=== PATIENT | female | born 1960 | race Caucasian/White ===

== ENCOUNTER 2020-02-13 11:46 | Emergency (ER) | payer OTHER, SELFPAY ==
[2020-02-13 11:48] VITALS: BP 187/76; PULSE 62; RESP 18; TEMP 36.4; O2SAT 98; BMI 23.1
--- NOTE | 2020-02-13 13:20 | XR_ITS ---
EXAMINATION: LEFT HIP AND SACRUM/COCCYX CLINICAL INFORMATION: Slipped and COMPARISON: Fell. Pain left hip and sacral region TECHNIQUE: Left hip 3 views. Sacrum and coccyx 3 views. FINDINGS: AP PELVIS AND LEFT HIP: There is a total left hip prosthesis with prosthetic components in satisfactory alignment. The SI joints are symmetrical and normal. L4 and L5 despite is hardware is visualized. The right hip joint space is normal. SACRUM AND COCCYX: No visible bony abnormality seen involving the sacrum or coccyx. The presacral and postsurgical soft tissues are normal. XR/XR hip LT min 2V IMPRESSION: Total left hip prosthesis in satisfactory alignment. Unremarkable right hip and SI joints. Unremarkable sacrum and/or coccyx.
--- NOTE | 2020-02-13 13:20 | XR_ITS ---
EXAMINATION: LEFT HIP AND SACRUM/COCCYX CLINICAL INFORMATION: Slipped and COMPARISON: Fell. Pain left hip and sacral region TECHNIQUE: Left hip 3 views. Sacrum and coccyx 3 views. FINDINGS: AP PELVIS AND LEFT HIP: There is a total left hip prosthesis with prosthetic components in satisfactory alignment. The SI joints are symmetrical and normal. L4 and L5 despite is hardware is visualized. The right hip joint space is normal. SACRUM AND COCCYX: No visible bony abnormality seen involving the sacrum or coccyx. The presacral and postsurgical soft tissues are normal. XR/XR sacrum coccyx min 2V IMPRESSION: Total left hip prosthesis in satisfactory alignment. Unremarkable right hip and SI joints. Unremarkable sacrum and/or coccyx.
--- NOTE | 2020-02-13 14:02 | ED.FALL ---
HPI - Fall General Chief Complaint: Fall Stated Complaint: fell hurt lesley jaimes Time Seen by Provider: 02/13/20 13:20 Source: patient Mode of arrival: ambulatory Limitations: no limitations History of Present Illness HPI Narrative: 59 y/o presenting with buttock and lower back pain s/p slip and fall down 4 stairs at home 2 days ago. She states she had a left hip replacement in September and is worried about the hardware. She states the pain is mostly on her tailbone and her right flank/low back. She is able to walk with a cane and some discomfort in her behind. She has no numbness, tingling or incontintinence issues. She states she also has upper back/shoulder soreness from the fall. She has been taking Motrin with some improvement. MD complaint: fall Onset (ago): day(s) (2) Fall from: standing Fall witnessed: yes, by family Place fall occurred: home Loss of consciousness: none Prolonged down time: no Symptoms prior to fall: none Context: tripped/slipped Location of injury: buttocks Severity: severe Severity scale (1-10): 8 Quality: aching Related Data Previous Rx's Medication Instructions Recorded acetaminophen [Tylenol Arthritis 650 mg PO Q8H PRN #30 tab 02/13/20 Pain] cyclobenzaprine 5 mg PO TID PRN #14 tab 02/13/20 ibuprofen 600 mg PO Q8H PRN #20 tab 02/13/20 lidocaine [Lidoderm] 1 patch TOPICAL DAILY #15 ea 02/13/20 Allergies Allergy/AdvReac Type Severity Reaction Status Date / Time codeine [CODEINE] AdvReac Unknown NAUSEA & Unverified 12/27/19 15:14 VOMITING Review of Systems Review of Systems: Constitutional: No Fever, No Chills ENT/Mouth: No sore throat, No Rhinorrhea, No Swallowing Difficulty Eyes: No Eye Pain, No Swelling, No Redness Cardiovascular: No Chest Pain, No SOB, No Orthopnea, No Edema Respiratory: No Cough, No Sputum, No Wheezing, No dyspnea Gastrointestinal: No Nausea, No Vomiting, No Diarrhea, No abdominal Pain, No Hematochezia, No Melena Genitourinary: No Dysuria, No Urinary Frequency, No Hematuria Musculoskeletal: No joint pain, No Myalgias Skin: No Skin Lesions, No rash Neuro: No Weakness, No Numbness, No Dizziness, No Headache Psych: No Anxiety/Panic, No Depression Heme/Lymph: No Bruising, No Lymphadenopathy Endocrine: No Polyuria, No Polydipsia [facility] Past Medical History Surgical History (Updated 02/13/20 @ 11:49 by Christiana Thrasher) History of left hip replacement Social History Social History Advance Directives: Yes Advance Directives Information Provided: Yes Advance Directives on File: No Physical Exam Vital Signs: Vital Signs: Vital Signs Temp Pulse Resp BP Pulse Ox 02/13/20 11:48 97.6 F 62 18 187/76 H 98 Body Mass Index 23.1 Appearance: Alert. Oriented X3. No acute distress. HEENT: normal inspection CVS: Normal heart rate and rhythm. Pulses normal. Respiratory: No respiratory distress. Skin: Skin warm and dry. Normal skin color. Normal skin turgor. No rashes. Back: upper right lumbar area with soft tissue tenderness. coccyx tenderness, no crepitus or deformity palpated. Extremities: pelvis is stable. mild tenderness to proximal femur on the left, no deformity. Neuro: Oriented X 3. No motor deficit. No sensory deficit. Course Course Course Narrative: reports right back pain and tailbone pain after slip and fall down 4 stairs 2 days ago. XR pending to r/o fracture and assess left hip integrity. Reevaluation(s) Reevaluation #1: XR shows Total left hip prosthesis in satisfactory alignment. Unremarkable right hip and SI joints. Unremarkable sacrum and/or coccyx. Will treat for contusion and strain. Patient will f/u with PCP this week. Critical Care Time Critical Care Time Critical Care Time: No Discharge Plan Discharge Clinical Impression: Contusion Qualifiers: Encounter type: initial encounter Contusion area: lower back Qualified Code(s): S30.0XXA - Contusion of lower back and pelvis, initial encounter Contusion of buttock Qualifiers: Encounter type: initial encounter Qualified Code(s): S30.0XXA - Contusion of lower back and pelvis, initial encounter Patient Disposition: Home, Self-Care Instructions: Contusion in Adults (ED), Acute Low Back Pain (ED), Lower Back Exercises (ED) Additional Instructions: Use ice to the wear for 20 minutes at a time several times per day for the next 24-48 hours then change to heat. Limit bending, lifting >10 lbs and twisting motions. Rest. Follow up with your Primary Care doctor in 1 week. If you pain worsens or if you develop new numbness, tingling, or loss of function call 911 or come back to the ER for further evaluation. Prescriptions: New ibuprofen 600 mg tablet 600 mg PO Q8H PRN (Reason: pain) Qty: 20 RF: 0 cyclobenzaprine 5 mg tablet 5 mg PO TID PRN (Reason: muscle spasm) Qty: 14 RF: 0 acetaminophen [Tylenol Arthritis Pain] 650 mg tablet extended release 650 mg PO Q8H PRN (Reason: pain) Qty: 30 RF: 0 lidocaine [Lidoderm] 5 % adhesive patch,medicated 1 patch topical DAILY Qty: 15 RF: 0
[2020-02-13 14:57] VITALS: BP 142/73; PULSE 84; RESP 14; TEMP 36.8; O2SAT 98
== END 2020-02-13 15:01 | disposition home or self-care (01) ==
PROVIDERS: Emergency Provider Emergency Medicine; PCP Internal Medicine
DX: S30.0XXA Contusion of lower back and pelvis, initial encounter (principal); W10.9XXA Fall (on) (from) unspecified stairs and steps, initial encounter; M25.552 Pain in left hip; M25.551 Pain in right hip; Y93.9 Activity, unspecified; Y92.009 Unspecified place in unspecified non-institutional (private) residence as the place of occurrence of the external cause; Y99.9 Unspecified external cause status; Z79.899 Other long term (current) drug therapy
CPT/HCPCS: 72220; 73502; 99283

== ENCOUNTER 2020-11-09 12:47 | Emergency (ER) | payer BC, SELFPAY ==
--- NOTE | ~2020-11-09 | XR_ITS ---
EXAMINATION: XR CHEST CLINICAL INFORMATION: Cough and fever COMPARISON: 10/06/2019 TECHNIQUE: Portable AP upright view of the chest was obtained. FINDINGS: The heart and mediastinum are normal in appearance. The lungs and pleural spaces are clear. No acute osseous abnormalities. XR/XR chest 1V IMPRESSION: Unremarkable examination.
[2020-11-09 13:14] VITALS: BP 140/53; PULSE 64; RESP 16; TEMP 37.7; O2SAT 99; BMI 22.1
[2020-11-09 14:16] VITALS: BP 138/52; PULSE 73; TEMP 37.1; O2SAT 100
--- NOTE | 2020-11-09 14:24 | ED.GENADULT ---
HPI - General Adult General Chief complaint: General Medical Stated complaint: multiple complaints Time Seen by Provider: 11/09/20 14:08 Source: patient Mode of arrival: ambulatory Limitations: no limitations History of Present Illness HPI narrative: 60-year-old female presents emergency department with multiple complaints she states that she has been having some nausea for the past 2 days decreased appetite and urinary frequency she has been drinking lots of water. Patient is concerned that she has had fevers and chills this morning she is immunized against COVID. Patient denies any falls head injuries she had 1 episode of emesis yesterday. Related Data Previous Rx's Medication Instructions Recorded acetaminophen 650 mg 650 mg PO Q8H PRN #30 tab 02/13/20 tablet,extended release (Tylenol Arthritis Pain) cyclobenzaprine 5 mg tablet 5 mg PO TID PRN #14 tab 02/13/20 ibuprofen 600 mg tablet 600 mg PO Q8H PRN #20 tab 02/13/20 lidocaine 5 % topical patch 1 patch TOPICAL DAILY #15 ea 02/13/20 (Lidoderm) permethrin 5 % topical cream 1 appl TOPICAL Q14D #60 g 03/11/20 Allergies Allergy/AdvReac Type Severity Reaction Status Date / Time codeine [CODEINE] AdvReac Unknown NAUSEA & Verified 11/09/20 13:22 VOMITING PMFSH Past Medical History Medical History (Updated 11/09/20 @ 15:55 by Alexey Cruz DO) Avascular necrosis of bone Surgical History (Updated 03/24/20 @ 08:15 by Sandy Morris CMA) History of left hip replacement (~10/01/19) Social History Social History Patient Tobacco Use Status: Current everyday Tobacco user Smoked in Last 30 Days: Yes Use of substances other than those prescribed or required for medical reasons: No Advance Directives: No Advance Directives Information Provided: Yes Physical Exam Vital Signs: Vital Signs: Last Vital Signs Temp 98.7 F 11/09/20 14:16 Pulse 73 11/09/20 14:16 Resp 16 11/09/20 13:14 BP 138/52 L 11/09/20 14:16 Pulse Ox 100 11/09/20 14:16 Body Mass Index 22.1 Medical Decision Making MDM Narrative Medical decision making narrative: 1430 and patient with multiple complaints including nausea vomiting urinary symptom is fever and body aches. I will send a flu RSV and COVID I will get an x-ray and labs to give the patient fluids Tylenol and Toradol. Patient looks well still pending is urinalysis x-ray and labs otherwise unremarkable I will sign out pending UA. Lab Data Result diagrams: 11/09/20 14:36 11/09/20 14:36 Labs: Lab Results 11/09/20 11/09/20 Range/Units 14:36 14:36 WBC 12.4 H (4.8-10.8) X10*3/uL RBC 4.42 (4.20-5.50) X10*6/uL Hgb 13.3 (12.0-16.0) g/dl Hct 39.6 (37-47) % MCV 89.6 (80-98) fL MCH 30.1 (27.0-33.0) pg MCHC 33.6 (31.0-35.0) g/dl RDW 12.6 (11.0-16.0) % Plt Count 222 (160-400) X10*3/uL MPV 9.0 L (9.4-12.3) fL Immature Gran % (Auto) 0.6 H (0.0-0.4) % Neut % (Auto) 73.8 H (45-73) % Lymph % (Auto) 16.6 L (20-40) % [place] % (Auto) 8.6 (2-11) % Eos % (Auto) 0.1 (0-4) % Baso % (Auto) 0.3 (0-2) % Lymph # (Auto) 2.1 (1.2-4.9) X10*3/uL [place] # (Auto) 1.1 (0.1-1.2) X10*3/uL Eos # (Auto) 0.0 (0.0-0.4) X10*3/uL Baso # (Auto) 0.0 (0.0-0.2) X10*3/uL Abs Immat Gran (auto) 0.07 H (0.00-0.03) X10*3/uL Absolute Neuts (auto) 9.1 H (2.0-8.3) X10*3/uL Absolute Nucleated RBC 0.000 (0.0-0.012) X10*3/uL Nucleated RBC % (auto) 0.0 (0.0-0.2) /100WBC Sodium 135 (135-145) mmol/L Potassium 4.1 (3.3-5.1) mmol/L Chloride 98 (96-108) mmol/L Carbon Dioxide 27 (22-29) mmol/L Anion Gap 14 (12-20) BUN 7 L (9-16) mg/dL Creatinine 0.66 (0.5-1.4) mg/dL Estim Creat Clear Calc 80.2 Estimated GFR > 60 Random Glucose 104 (60-115) mg/dL Calcium 9.5 (8.4-10.2) mg/dL Total Bilirubin 1.0 (0.0-1.0) mg/dL Direct Bilirubin 0.4 (0.0-0.5) mg/dL AST 19 (5-31) U/L ALT 24 (0-31) U/L Alkaline Phosphatase 111 (39-117) U/L Total Protein 6.8 (6.5-8.0) g/dL Albumin 4.3 (3.5-5.0) g/dL Lipase 24 (8-78) U/L Discharge Plan Discharge Clinical Impression: Fever, Myalgia, Increased urinary frequency Instructions: Acetaminophen (By mouth), Fever in Adults (ED), Urinary Urgency and Frequency (DC) Additional Instructions: Please call follow-up with her doctor if you have any other concerns please do not hesitate to come back to emergency department. Prescriptions: No Action ibuprofen 600 mg tablet 600 mg PO Q8H PRN (Reason: pain) Qty: 20 RF: 0 cyclobenzaprine 5 mg tablet 5 mg PO TID PRN (Reason: muscle spasm) Qty: 14 RF: 0 acetaminophen [Tylenol Arthritis Pain] 650 mg tablet extended release 650 mg PO Q8H PRN (Reason: pain) Qty: 30 RF: 0 lidocaine [Lidoderm] 5 % adhesive patch,medicated 1 patch topical DAILY Qty: 15 RF: 0 permethrin 5 % cream 1 appl topical Q14D Qty: 60 RF: 0
[2020-11-09] MEDS: 0.9 % Sodium Chloride 500 ML 999 ML IV (14:40)
[2020-11-09 14:41] LABS: MANUAL DIFF FLAG NO
[2020-11-09 14:42] LABS: Basophils Percent Auto 0.3 % (0-2); Eosinophils Percent Auto 0.1 % (0-4); Hematocrit 39.6 % (37-47); Hemoglobin 13.3 g/dl (12.0-16.0); Imm Gran Abs Auto 0.07 X10*3/uL (0.00-0.03); Imm Gran Pct Auto 0.6 % (0.0-0.4); Lymphocytes Absolute Auto 2.1 X10*3/uL (1.2-4.9); Lymphocytes Percent Auto 16.6 % (20-40); Mean Corpuscular HGB Conc 33.6 g/dl (31.0-35.0); Mean Corpuscular Hemoglobin 30.1 pg (27.0-33.0); Mean Corpuscular Volume 89.6 fL (80-98); Monocytes Absolute Auto 1.1 X10*3/uL (0.1-1.2); Monocytes Percent Auto 8.6 % (2-11); Neutrophils Absolute Auto 9.1 X10*3/uL (2.0-8.3); Neutrophils Percent Auto 73.8 % (45-73); Platelet Count 222 X10*3/uL (160-400); Red Blood Count 4.42 X10*6/uL (4.20-5.50); Red Cell Distribution Width 12.6 % (11.0-16.0); White Blood Count 12.4 X10*3/uL (4.8-10.8)
[2020-11-09] MEDS: Ketorolac Tromethamine 15 MG/ML VIAL IV (14:58)
[2020-11-09] MEDS: Acetaminophen 325 MG TABLET 650 MG PO (14:58)
[2020-11-09 15:05] LABS: Alanine Aminotransferase 24 U/L (0-31); Albumin Level 4.3 g/dL (3.5-5.0); Alkaline Phosphatase 111 U/L (39-117); Anion Gap 14 (12-20); Aspartate Amino Transferase 19 U/L (5-31); Bilirubin Direct 0.4 mg/dL (0.0-0.5); Blood Urea Nitrogen 7 mg/dL (9-16); Calcium 9.5 mg/dL (8.4-10.2); Carbon Dioxide 27 mmol/L (22-29); Chloride 98 mmol/L (96-108); Creatinine Clr Calc Pharmacy 80.2; Estimated Glomerular Filt Rate > 60; Glucose Random 104 mg/dL (60-115); Lipase 24 U/L (8-78); Potassium 4.1 mmol/L (3.3-5.1); Sodium 135 mmol/L (135-145); Total Protein 6.8 g/dL (6.5-8.0)
[2020-11-09 15:41] LABS: Influenza A PCR NEGATIVE (Negative); Influenza B PCR NEGATIVE (Negative); Resp Syncy Virus RNA Qual PCR NEGATIVE (Negative); SARS COV2 PCR INHOUSE NEGATIVE (Negative)
[2020-11-09 15:55] LABS: Glucose Urine UA NEG (NEG); Leukocyte Esterase Urine 2+ (NEG); Nitrite Urine POS (NEG); UACC Culture Trigger YES; Urine Blood 1+ (NEG); Urine Ketones NEG (NEG); Urine Protein TRACE MG/DL (NEG-TRACE)
[2020-11-09 16:05] LABS: Appearance Urine HAZY; Color Urine YELLOW
[2020-11-09 16:20] VITALS: BP 121/39; PULSE 67; RESP 16; TEMP 36.8; O2SAT 95
[2020-11-09 17:08] LABS: Bacteria Urine 3+ /LPF; RBC Urine 0-2 /HPF (0); Squamous Epithelial Cell Urine TRACE /LPF; Uric Acid Crystals Urine TRACE /LPF; WBC Urine 50-75 /HPF (0-4)
--- NOTE | 2020-11-09 17:40 | ED.GENADULT ---
HPI - General Adult General Chief complaint: General Medical Stated complaint: multiple complaints Time Seen by Provider: 11/09/20 14:08 Source: patient Mode of arrival: ambulatory Limitations: no limitations Related Data Previous Rx's Medication Instructions Recorded acetaminophen 650 mg 650 mg PO Q8H PRN #30 tab 02/13/20 tablet,extended release (Tylenol Arthritis Pain) cyclobenzaprine 5 mg tablet 5 mg PO TID PRN #14 tab 02/13/20 ibuprofen 600 mg tablet 600 mg PO Q8H PRN #20 tab 02/13/20 lidocaine 5 % topical patch 1 patch TOPICAL DAILY #15 ea 02/13/20 (Lidoderm) permethrin 5 % topical cream 1 appl TOPICAL Q14D #60 g 03/11/20 cefuroxime axetil 500 mg tablet 500 mg PO Q12H 7 Days #14 tab 11/09/20 phenazopyridine 200 mg tablet 200 mg PO TID PRN 3 Days #9 tab 11/09/20 (Pyridium) Allergies Allergy/AdvReac Type Severity Reaction Status Date / Time codeine [CODEINE] AdvReac Unknown NAUSEA & Verified 11/09/20 13:22 VOMITING PMF Past Medical History Medical History (Updated 11/09/20 @ 17:58 by Wayne Winn MD) Avascular necrosis of bone Surgical History (Updated 03/24/20 @ 08:15 by Sandy Morris CMA) History of left hip replacement (~10/01/19) Social History Social History Patient Tobacco Use Status: Current everyday Tobacco user Smoked in Last 30 Days: Yes Use of substances other than those prescribed or required for medical reasons: No Advance Directives: No Advance Directives Information Provided: Yes Physical Exam Vital Signs: Vital Signs: Last Vital Signs Temp 98.3 F 11/09/20 16:20 Pulse 67 11/09/20 16:20 Resp 16 11/09/20 16:20 BP 121/39 L 11/09/20 16:20 Pulse Ox 95 11/09/20 16:20 Body Mass Index 22.1 Medical Decision Making Lab Data Result diagrams: 11/09/20 14:36 11/09/20 14:36 Labs: Lab Results 11/09/20 11/09/20 11/09/20 Range/Units 14:32 14:36 14:36 WBC 12.4 H (4.8-10.8) X10*3/uL RBC 4.42 (4.20-5.50) X10*6/uL Hgb 13.3 (12.0-16.0) g/dl Hct 39.6 (37-47) % MCV 89.6 (80-98) fL MCH 30.1 (27.0-33.0) pg MCHC 33.6 (31.0-35.0) g/dl RDW 12.6 (11.0-16.0) % Plt Count 222 (160-400) X10*3/uL MPV 9.0 L (9.4-12.3) fL Immature Gran % (Auto) 0.6 H (0.0-0.4) % Neut % (Auto) 73.8 H (45-73) % Lymph % (Auto) 16.6 L (20-40) % [place] % (Auto) 8.6 (2-11) % Eos % (Auto) 0.1 (0-4) % Baso % (Auto) 0.3 (0-2) % Lymph # (Auto) 2.1 (1.2-4.9) X10*3/uL [place] # (Auto) 1.1 (0.1-1.2) X10*3/uL Eos # (Auto) 0.0 (0.0-0.4) X10*3/uL Baso # (Auto) 0.0 (0.0-0.2) X10*3/uL Abs Immat Gran (auto) 0.07 H (0.00-0.03) X10*3/uL Absolute Neuts (auto) 9.1 H (2.0-8.3) X10*3/uL Absolute Nucleated RBC 0.000 (0.0-0.012) X10*3/uL Nucleated RBC % (auto) 0.0 (0.0-0.2) /100WBC Sodium 135 (135-145) mmol/L Potassium 4.1 (3.3-5.1) mmol/L Chloride 98 (96-108) mmol/L Carbon Dioxide 27 (22-29) mmol/L Anion Gap 14 (12-20) BUN 7 L (9-16) mg/dL Creatinine 0.66 (0.5-1.4) mg/dL Estim Creat Clear Calc 80.2 Estimated GFR > 60 Random Glucose 104 (60-115) mg/dL Calcium 9.5 (8.4-10.2) mg/dL Total Bilirubin 1.0 (0.0-1.0) mg/dL Direct Bilirubin 0.4 (0.0-0.5) mg/dL AST 19 (5-31) U/L ALT 24 (0-31) U/L Alkaline Phosphatase 111 (39-117) U/L Total Protein 6.8 (6.5-8.0) g/dL Albumin 4.3 (3.5-5.0) g/dL Lipase 24 (8-78) U/L Urine Color Urine Appearance Urine pH (5.0-8.0) Ur Specific [place] (1.005-1.025) Urine Protein (NEG-TRACE) MG/DL Urine Glucose (UA) (NEG) MG/DL Urine Ketones (NEG) MG/DL Urine Blood (NEG) Urine Nitrite (NEG) Ur Leukocyte Esterase (NEG) Urine RBC (0) /HPF Urine WBC (0-4) /HPF Ur Squamous Epith Cells /LPF Uric Acid Crystals /LPF Urine Bacteria /LPF Coronavirus (PCR) NEGATIVE (Negative) Influenza Type A (PCR) NEGATIVE (Negative) Influenza Type B (PCR) NEGATIVE (Negative) RSV RNA Qual (PCR) NEGATIVE (Negative) 11/09/20 Range/Units 15:22 WBC (4.8-10.8) X10*3/uL RBC (4.20-5.50) X10*6/uL Hgb (12.0-16.0) g/dl Hct (37-47) % MCV (80-98) fL MCH (27.0-33.0) pg MCHC (31.0-35.0) g/dl RDW (11.0-16.0) % Plt Count (160-400) X10*3/uL MPV (9.4-12.3) fL Immature Gran % (Auto) (0.0-0.4) % Neut % (Auto) (45-73) % Lymph % (Auto) (20-40) % [place] % (Auto) (2-11) % Eos % (Auto) (0-4) % Baso % (Auto) (0-2) % Lymph # (Auto) (1.2-4.9) X10*3/uL [place] # (Auto) (0.1-1.2) X10*3/uL Eos # (Auto) (0.0-0.4) X10*3/uL Baso # (Auto) (0.0-0.2) X10*3/uL Abs Immat Gran (auto) (0.00-0.03) X10*3/uL Absolute Neuts (auto) (2.0-8.3) X10*3/uL Absolute Nucleated RBC (0.0-0.012) X10*3/uL Nucleated RBC % (auto) (0.0-0.2) /100WBC Sodium (135-145) mmol/L Potassium (3.3-5.1) mmol/L Chloride (96-108) mmol/L Carbon Dioxide (22-29) mmol/L Anion Gap (12-20) BUN (9-16) mg/dL Creatinine (0.5-1.4) mg/dL Estim Creat Clear Calc Estimated GFR Random Glucose (60-115) mg/dL Calcium (8.4-10.2) mg/dL Total Bilirubin (0.0-1.0) mg/dL Direct Bilirubin (0.0-0.5) mg/dL AST (5-31) U/L ALT (0-31) U/L Alkaline Phosphatase (39-117) U/L Total Protein (6.5-8.0) g/dL Albumin (3.5-5.0) g/dL Lipase (8-78) U/L Urine Color YELLOW Urine Appearance HAZY Urine pH 6.0 (5.0-8.0) Ur Specific [place] 1.010 (1.005-1.025) Urine Protein TRACE (NEG-TRACE) MG/DL Urine Glucose (UA) NEG (NEG) MG/DL Urine Ketones NEG (NEG) MG/DL Urine Blood 1+ H (NEG) Urine Nitrite POS H (NEG) Ur Leukocyte Esterase 2+ H (NEG) Urine RBC 0-2 (0) /HPF Urine WBC 50-75 H (0-4) /HPF Ur Squamous Epith Cells TRACE /LPF Uric Acid Crystals TRACE /LPF Urine Bacteria 3+ /LPF Coronavirus (PCR) (Negative) Influenza Type A (PCR) (Negative) Influenza Type B (PCR) (Negative) RSV RNA Qual (PCR) (Negative) Discharge Plan Discharge Clinical Impression: Myalgia Fever Qualifiers: Encounter type: initial encounter Acute cystitis Qualifiers: Hematuria presence: without hematuria Qualified Code(s): N30.00 - Acute cystitis without hematuria Patient Disposition: Home, Self-Care Instructions: Urinary Tract Infection in Women (ED) Additional Instructions: Your laboratory blood work was unremarkable. Your urine test was consistent with a urine infection, you have white blood cells in your urine and bacteria. Your exam is consistent with a bladder infection. Take Ceftin ( cefuroxime) 500 mg pills, 1 pill the every 12 hours for 7 days. Take Pyridium 200 mg pills, 1 pill every 6 hours (3 times a day) as needed for urgency, frequency, burning or painful urination. Take ibuprofen 200 mg pills, 3 pills every 6 hours as needed for pain or fever Take Tylenol (acetaminophen) 500 mg pills, 2 pills every 4 to 6 hours as needed for pain or fever Follow-up with your doctor in 2 days. Please return to the emergency department if your symptoms get worse or if you develop any symptoms that are concerning to you. Prescriptions: New cefuroxime axetil 500 mg tablet 500 mg PO Q12H 7 Days Qty: 14 RF: 0 phenazopyridine [Pyridium] 200 mg tablet 200 mg PO TID PRN (Reason: Burning with urination) 3 Days Qty: 9 RF: 0 No Action ibuprofen 600 mg tablet 600 mg PO Q8H PRN (Reason: pain) Qty: 20 RF: 0 cyclobenzaprine 5 mg tablet 5 mg PO TID PRN (Reason: muscle spasm) Qty: 14 RF: 0 acetaminophen [Tylenol Arthritis Pain] 650 mg tablet extended release 650 mg PO Q8H PRN (Reason: pain) Qty: 30 RF: 0 lidocaine [Lidoderm] 5 % adhesive patch,medicated 1 patch topical DAILY Qty: 15 RF: 0 permethrin 5 % cream 1 appl topical Q14D Qty: 60 RF: 0
[2020-11-09] MEDS: Phenazopyridine HCL 200 MG TABLET PO (18:09)
== END 2020-11-09 18:13 | disposition home or self-care (01) ==
PROVIDERS: Student in an Organized Health Care Education/Training Program; Emergency Provider Emergency Medicine Emergency Medical Services; PCP Internal Medicine
DX: M79.10 Myalgia, unspecified site (principal); N30.00 Acute cystitis without hematuria; Z20.822 Contact with and (suspected) exposure to COVID-19; Z79.899 Other long term (current) drug therapy; F17.200 Nicotine dependence, unspecified, uncomplicated; Z71.6 Tobacco abuse counseling
CPT/HCPCS: 0241U; 36415; 71045; 80048; 80076; 81001; 81003; 83690; 85025; 87086; 87088; 87186; 96365; 96375; 99284; J1885; J2405

== ENCOUNTER 2021-01-06 14:01 | Outpatient (REF) | payer BC, SELFPAY ==
[2021-01-06 14:56] LABS: Influenza A PCR NEGATIVE (Negative); Influenza B PCR NEGATIVE (Negative); Resp Syncy Virus RNA Qual PCR NEGATIVE (Negative); SARS COV2 PCR INHOUSE NEGATIVE (Negative)
== END 2021-01-06 14:02 | disposition home or self-care (01) ==
LOC: HO.LNP 14:01
PROVIDERS: Visit Provider Physician Assistant Medical
DX: Z20.822 Contact with and (suspected) exposure to COVID-19 (principal); J06.9 Acute upper respiratory infection, unspecified
CPT/HCPCS: 0241U

== ENCOUNTER 2021-03-20 07:43 | Outpatient (REF) | payer BC, SELFPAY ==
--- NOTE | ~2021-03-20 | XR_ITS ---
EXAMINATION: XR PELVIS. XR HIP, RIGHT CLINICAL INFORMATION: Right hip pain. COMPARISON: 02/13/2020 TECHNIQUE: AP radiograph of the pelvis. AP and frog-lateral views of the right hip. FINDINGS: There is patchy sclerosis of the right femoral head, most likely representing avascular necrosis. This is similar to the previous study. Minimal superomedial joint space narrowing with no definite articular surface collapse. No acute osseous abnormality. Stable appearance of the left total hip arthroplasty. 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 No acute abnormality is evident.
--- NOTE | ~2021-03-20 | XR_ITS ---
EXAMINATION: XR PELVIS. XR HIP, RIGHT CLINICAL INFORMATION: Right hip pain. COMPARISON: 02/13/2020 TECHNIQUE: AP radiograph of the pelvis. AP and frog-lateral views of the right hip. FINDINGS: There is patchy sclerosis of the right femoral head, most likely representing avascular necrosis. This is similar to the previous study. Minimal superomedial joint space narrowing with no definite articular surface collapse. No acute osseous abnormality. Stable appearance of the left total hip arthroplasty. 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 No acute abnormality is evident.
== END 2021-03-20 07:44 | disposition home or self-care (01) ==
LOC: HO.HOSX 07:43
PROVIDERS: Visit Provider Physician Assistant
DX: M70.61 Trochanteric bursitis, right hip (principal)
CPT/HCPCS: 72170; 73502

== ENCOUNTER 2021-06-09 09:13 | Emergency (ER) | payer BC, OTHER, SELFPAY ==
--- NOTE | ~2021-06-09 | XR_ITS ---
EXAMINATION: XR LUMBOSACRAL SPINE CLINICAL INFORMATION: Pain post fall COMPARISON: None TECHNIQUE: Three views of the lumbosacral spine. FINDINGS: Bone alignment is normal. No fracture or dislocation is seen. There is degenerative disc disease, spondylosis and facet arthritis of the lower lumbar spine. There is hardware fusion of the L4-L5 spinous processes. There is a left hip replacement. There are radiopaque devices in the pelvis probably related to previous fallopian tube procedure. XR/XR lumbar spine 2-3V IMPRESSION: Degenerative changes. Postoperative changes to the L4-L5 spinous processes.
--- NOTE | ~2021-06-09 | XR_ITS ---
EXAMINATION: XR HIP, LEFT CLINICAL INFORMATION: Pain post fall. COMPARISON: None. TECHNIQUE: 2 views of the left hip and 1 view of the pelvis. FINDINGS: There is a left hip replacement in satisfactory position. No fracture, dislocation or x-ray evidence of loosening is seen. There may be AVN of the right femoral head that appears unchanged. There are mild degenerative changes of the right hip joint. Bones of the pelvis are unremarkable. There is hardware in the lower lumbar spine. There are bilateral surgical devices in the pelvis probably related to previous fallopian tube procedure. These are unchanged. XR/XR hip LT w PEL1V IMPRESSION: Satisfactory appearance of left hip replacement. No fracture or dislocation.
[2021-06-09 09:21] VITALS: BP 100/80; PULSE 58; RESP 16; TEMP 36.7; O2SAT 97; BMI 23.1
[2021-06-09] MEDS: Ketorolac Tromethamine 30 MG/ML VIAL IM (09:28)
[2021-06-09] MEDS: oxyCODONE HCl Immed Release 5 MG TABLET PO (09:28)
--- NOTE | 2021-06-09 09:31 | ED_ITS ---
HPI - Fall General Chief Complaint: Fall Stated Complaint: SLIP/FALL LAST NOC W/BACK & HIP PAIN Time Seen by Provider: 06/09/21 09:20 Source: patient and EMS Mode of arrival: EMS Limitations: no limitations History of Present Illness HPI Narrative: 52-year-old female with a history of hypertension who presents to the ER via EMS from home with reports of left low back pain after she slipped and fell last night at 00:30. She reports that she got up to let out her dog and was walking [place] stairs [place] when she slipped and fell onto her left low back and buttocks. She reports it took her a while to get up. She did not hit her head or lose consciousness. She is not on anticoagulation. She reports she was unable to sleep after the fall. She was unable to get out of bed this morning due to the pain in her left lower back and buttock. She called 911. She denies any numbness, tingling, weakness, incontinence. MD complaint: fall Onset (ago): hour(s) (9) Fall from: standing Fall witnessed: no Place fall occurred: home Loss of consciousness: none Prolonged down time: no Symptoms prior to fall: none Context: tripped/slipped Location of injury: back and buttocks Severity: severe Severity scale (1-10): 9 Quality: sharp and aching Associated symptoms (after fall): denies Related Data Home Medications Medication Instructions Recorded Confirmed albuterol sulfate 90 mcg/actuation 2 puff PO Q4-6H PRN 06/09/21 aerosol inhaler amlodipine 10 mg tablet 1 tab PO DAILY 06/09/21 buspirone 15 mg tablet 1 tab PO BID 06/09/21 fluoxetine 20 mg capsule 3 cap PO QAM 06/09/21 hydroxyzine HCl 25 mg tablet 1 - 2 tab PO BID PRN 06/09/21 losartan 100 mg tablet 1 tab PO DAILY 06/09/21 metoprolol succinate 50 mg 1 tab PO DAILY 06/09/21 tablet,extended release 24 hr oxycodone-acetaminophen 5 mg-325 1 - 2 tab PO Q6H PRN 06/09/21 mg tablet pantoprazole 40 mg tablet,delayed 1 tab PO DAILY 06/09/21 release Previous Rx's Medication Instructions Recorded acetaminophen 650 mg 650 mg PO Q8H PRN #30 tab 02/13/20 tablet,extended release (Tylenol Arthritis Pain) cyclobenzaprine 5 mg tablet 5 mg PO TID PRN #14 tab 02/13/20 ibuprofen 600 mg tablet 600 mg PO Q8H PRN #20 tab 02/13/20 lidocaine 5 % topical patch 1 patch TOPICAL DAILY #15 ea 02/13/20 (Lidoderm) permethrin 5 % topical cream 1 appl TOPICAL Q14D #60 g 03/11/20 cefuroxime axetil 500 mg tablet 500 mg PO Q12H 7 Days #14 tab 11/09/20 phenazopyridine 200 mg tablet 200 mg PO TID PRN 3 Days #9 tab 11/09/20 (Pyridium) naproxen 500 mg tablet 500 mg PO BID PRN #20 tab 06/09/21 tramadol 50 mg tablet 50 mg PO Q8H PRN #7 tab 06/09/21 Allergies Allergy/AdvReac Type Severity Reaction Status Date / Time codeine [CODEINE] AdvReac Unknown NAUSEA & Verified 03/20/21 11:43 VOMITING Review of Systems Review of Systems: Constitutional: No Fever, No Chills Cardiovascular: No Chest Pain, No SOB Gastrointestinal: No Nausea, No Vomiting, No abdominal Pain Genitourinary: No Dysuria, No Urinary Frequency, No Hematuria Musculoskeletal: + joint pain, + Myalgias Skin: No Skin Lesions, No rash Neuro: No Weakness, No Numbness, No Dizziness, No Headache Psych: No Anxiety/Panic, No Depression Heme/Lymph: No Bruising, No Lymphadenopathy Endocrine: No Polyuria, No Polydipsia PMFSH Past Medical History Medical History Avascular necrosis of bone Surgical History History of left hip replacement (~10/01/19) Social History Social History (Updated 03/20/21 @ 11:44 by Al Medina) Patient Tobacco Use Status: Current everyday Tobacco user Advance Directives: No Advance Directives Information Provided: Yes Current occupational status: disabled Current occupation: rt handed Physical Exam Vital Signs: Vital Signs: Last Vital Signs Temp 97.9 F 06/09/21 10:24 Pulse 51 06/09/21 10:24 Resp 14 06/09/21 10:24 BP 110/46 L 06/09/21 10:24 Pulse Ox 94 06/09/21 10:24 BMI result Body Mass Index 23.1 Appearance: Alert. Oriented X3. No acute distress. Head: atraumatic, normocephalic, nontender throughout Eyes: Pupils equal, round and reactive to light. ENT: Pharynx normal. Neck: Normal inspection. Neck supple. CVS: Normal heart rate and rhythm. Pulses normal. Respiratory: No respiratory distress. Breath sounds normal. Abdomen: Soft and nontender. +BS x4 Skin: Skin warm and dry. Normal skin color. Normal skin turgor. No rashes. Back: left upper, middle and lower lumbar area with soft tissue tenderness. no midline tenderness. no ecchymosis Extremities: Pelvis is stable. No hip tenderness. No lower extremity edema. +straight leg raise on the right at 30 degrees. Neuro: Oriented X 3. No motor deficit. No sensory deficit. Gait not tested due to pain. Course Course Course Narrative: 60 y/o female presenting with left lower back pain s/p slip and fall while walking up stairs in the middle of the night last night. No neuro deficits, no incontinence. No ecchymosis on exam but soft tissue tenderness throughout left lumbar area. XRs pending. Toradol and oxycodone ordered. Will reassess. Reevaluation(s) Reevaluation #1: Pain improved. Lumbar spine XR without fracture. Still pending pelvis and hip XR. Reevaluation #2: XR pelvis and hip did not show any acute fractures. She is feeling better. Stable for d/c home with course of NSAID and muscle relaxer. 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 Discharge Plan Discharge Clinical Impression: Contusion of lower back Patient Disposition: Home, Self-Care Instructions: Contusion in Adults (ED) Additional Instructions: Your x-rays today did not show any broken bones. Your pain is most likely due to soft tissue contusion or bruising. Recommend rest, no strenuous activity. No bending, lifting or twisting. Use ice several times per day for 20 minutes at a time for the next 48 hours and then change to heat. Take medications as prescribed to help with pain and discomfort. Follow up with your Primary Care Doctor this week. If your pain worsens, if you develop new numbness, tingling, weakness, loss of function or incontinence call 911 or come back to the ER right away for evaluation. Prescriptions: New naproxen 500 mg tablet 500 mg PO BID PRN (Reason: pain) Qty: 20 0RF tramadol 50 mg tablet 50 mg PO Q8H PRN (Reason: severe pain (scale score 7-10)) Qty: 7 0RF No Action ibuprofen 600 mg tablet 600 mg PO Q8H PRN (Reason: pain) Qty: 20 0RF cyclobenzaprine 5 mg tablet 5 mg PO TID PRN (Reason: muscle spasm) Qty: 14 0RF acetaminophen [Tylenol Arthritis Pain] 650 mg tablet extended release 650 mg PO Q8H PRN (Reason: pain) Qty: 30 0RF lidocaine [Lidoderm] 5 % adhesive patch,medicated 1 patch topical DAILY Qty: 15 0RF Rx Instructions: leave on most painful area for up to 12 hrs cefuroxime axetil 500 mg tablet 500 mg PO Q12H 7 Days Qty: 14 0RF phenazopyridine [Pyridium] 200 mg tablet 200 mg PO TID PRN (Reason: Burning with urination) 3 Days Qty: 9 0RF metoprolol succinate 50 mg tablet extended release 24 hr 1 tab PO DAILY 0RF oxycodone-acetaminophen 5-325 mg tablet 1 - 2 tab PO Q6H PRN (Reason: Pain) 0RF amlodipine 10 mg tablet 1 tab PO DAILY 0RF pantoprazole 40 mg tablet,delayed release (DR/EC) 1 tab PO DAILY 0RF hydroxyzine HCl 25 mg tablet 1 - 2 tab PO BID PRN (Reason: anxiety) 0RF albuterol sulfate 90 mcg/actuation HFA aerosol inhaler 2 puff PO Q4-6H PRN (Reason: Wheezing) 0RF losartan 100 mg tablet 1 tab PO DAILY 0RF fluoxetine 20 mg capsule 3 cap PO QAM 0RF buspirone 15 mg tablet 1 tab PO BID 0RF permethrin 5 % cream 1 appl topical Q14D Qty: 60 0RF Rx Instructions: apply second treatment 14 days after first treatment if live lice remain
[2021-06-09 10:24] VITALS: BP 110/46; PULSE 51; RESP 14; TEMP 36.6; O2SAT 94
== END 2021-06-09 12:22 | disposition home or self-care (01) ==
PROVIDERS: Emergency Provider Emergency Medicine; PCP Internal Medicine
DX: S30.0XXA Contusion of lower back and pelvis, initial encounter (principal); M54.50 Low back pain, unspecified; I10 Essential (primary) hypertension; W01.0XXA Fall on same level from slipping, tripping and stumbling without subsequent striking against object, initial encounter; Y93.9 Activity, unspecified; Y92.9 Unspecified place or not applicable; Y99.9 Unspecified external cause status; F17.200 Nicotine dependence, unspecified, uncomplicated; Z71.6 Tobacco abuse counseling; Z79.899 Other long term (current) drug therapy
CPT/HCPCS: 72100; 73502; 96372; 99284; J1885

== ENCOUNTER 2021-07-01 11:49 | Outpatient (REF) | payer BC, SELFPAY ==
--- NOTE | ~2021-07-01 | XR_ITS ---
EXAMINATION: XR SHOULDER, RIGHT XR SHOULDER, LEFT CLINICAL INFORMATION: Bilateral shoulder pain. COMPARISON: Right shoulder radiographs dated 08/04/2017. TECHNIQUE: AP, Grashey, scapular Y, and axial views of the right and left shoulder. FINDINGS: Right shoulder: No acute fracture or dislocation. Acromioclavicular marginal osteophytes. No glenohumeral joint space narrowing or marginal osteophytes. There is calcification adjacent to the greater tuberosity measuring 0.6 cm, consistent with infraspinatus calcific tendinitis and new when compared to the prior examination. Redemonstration of bone islands within the humeral head. Left shoulder: No acute fracture or dislocation. Small acromioclavicular marginal osteophytes. No glenohumeral joint space narrowing or marginal osteophytes. No osseous erosion. No abnormal soft tissue calcification. XR/XR shoulder RT min 2V IMPRESSION: Right shoulder: Mild infraspinatus calcific tendinitis, new when compared to the prior examination. Mild acromioclavicular osteoarthritis is unchanged. Left shoulder: Mild acromioclavicular osteoarthritis, unchanged.
--- NOTE | ~2021-07-01 | XR_ITS ---
EXAMINATION: XR SHOULDER, RIGHT XR SHOULDER, LEFT CLINICAL INFORMATION: Bilateral shoulder pain. COMPARISON: Right shoulder radiographs dated 08/04/2017. TECHNIQUE: AP, Grashey, scapular Y, and axial views of the right and left shoulder. FINDINGS: Right shoulder: No acute fracture or dislocation. Acromioclavicular marginal osteophytes. No glenohumeral joint space narrowing or marginal osteophytes. There is calcification adjacent to the greater tuberosity measuring 0.6 cm, consistent with infraspinatus calcific tendinitis and new when compared to the prior examination. Redemonstration of bone islands within the humeral head. Left shoulder: No acute fracture or dislocation. Small acromioclavicular marginal osteophytes. No glenohumeral joint space narrowing or marginal osteophytes. No osseous erosion. No abnormal soft tissue calcification. XR/XR shoulder LT min 2V IMPRESSION: Right shoulder: Mild infraspinatus calcific tendinitis, new when compared to the prior examination. Mild acromioclavicular osteoarthritis is unchanged. Left shoulder: Mild acromioclavicular osteoarthritis, unchanged.
== END 2021-07-01 11:50 | disposition home or self-care (01) ==
LOC: HO.XRAY 11:49
PROVIDERS: PCP Internal Medicine; Visit Provider Internal Medicine
DX: M25.511 Pain in right shoulder (principal); M25.512 Pain in left shoulder
CPT/HCPCS: 73030

== ENCOUNTER 2022-05-12 07:59 | Emergency (ER) | payer OTHER, SELFPAY ==
--- NOTE | ~2022-05-12 | XR_ITS ---
EXAMINATION: XR CHEST CLINICAL INFORMATION: Cough COMPARISON: 11/09/2020 TECHNIQUE: Frontal view of the chest was obtained. FINDINGS: No significant abnormality is noted involving the heart, lungs, mediastinum, bony thorax or soft tissues. XR/XR chest 1V IMPRESSION: Unremarkable examination.
[2022-05-12 08:00] VITALS: BP 143/99; PULSE 78; RESP 20; TEMP 36.8; O2SAT 99; BMI 23.1
--- NOTE | 2022-05-12 08:09 | ED.URI ---
HPI - URI/Sore Throat General Chief Complaint: Upper Respiratory Symptoms Stated Complaint: Cough Time Seen by Provider: 05/12/22 08:08 Source: patient Mode of arrival: ambulatory Limitations: no limitations History of Present Illness HPI Narrative: Patient is a 61-year-old female who presents to the emergency department for evaluation of cough and chest congestion. She reports a history of COPD and tobacco usage. For the past 5-6 days she has noticed an increase in sputum production, change in color, shortness of breath/wheezing, using her inhaler and nebulizer without complete improvement. Although, she does endorse feeling better today than she did yesterday. She reports a history of pneumonia, expressing verbal concern at this time for pneumonia. Denies fevers, chills, chest pain, nausea, vomiting, diarrhea. Denies any known sick contacts. Related Data Home Medications Medication Instructions Recorded Confirmed albuterol sulfate 90 mcg/actuation 2 puff PO Q4-6H PRN Wheezing 06/09/21 aerosol inhaler amlodipine 10 mg tablet 1 tab PO DAILY 06/09/21 buspirone 15 mg tablet 1 tab PO BID 06/09/21 fluoxetine 20 mg capsule 3 cap PO QAM 06/09/21 hydroxyzine HCl 25 mg tablet 1 - 2 tab PO BID PRN anxiety 06/09/21 losartan 100 mg tablet 1 tab PO DAILY 06/09/21 metoprolol succinate 50 mg 1 tab PO DAILY 06/09/21 tablet,extended release 24 hr oxycodone-acetaminophen 5 mg-325 1 - 2 tab PO Q6H PRN Pain 06/09/21 mg tablet pantoprazole 40 mg tablet,delayed 1 tab PO DAILY 06/09/21 release Previous Rx's Medication Instructions Recorded acetaminophen 650 mg 650 mg PO Q8H PRN pain #30 tabs 02/13/20 tablet,extended release (Tylenol Arthritis Pain) cyclobenzaprine 5 mg tablet 5 mg PO TID PRN muscle spasm #14 02/13/20 tabs ibuprofen 600 mg tablet 600 mg PO Q8H PRN pain #20 tabs 02/13/20 lidocaine 5 % topical patch 1 patch topical DAILY #15 ea 02/13/20 (Lidoderm) permethrin 5 % topical cream 1 appl topical Q14D 2 doses #60 03/11/20 grams cefuroxime axetil 500 mg tablet 500 mg PO Q12H 7 days #14 tabs 08/01/21 phenazopyridine 200 mg tablet 200 mg PO TID PRN Burning with 11/09/20 (Pyridium) urination 3 days #9 tabs naproxen 500 mg tablet 500 mg PO BID PRN pain #20 tabs 06/09/21 tramadol 50 mg tablet 50 mg PO Q8H PRN severe pain 06/09/21 (scale score 7-10) #7 tabs amoxicillin 500 mg tablet 2,000 mg PO ONCE 1 day #4 tabs 09/23/21 doxycycline hyclate 100 mg capsule 100 mg PO BID #14 caps 05/12/22 prednisone 20 mg tablet 40 mg PO DAILY #10 tabs 05/12/22 Allergies Allergy/AdvReac Type Severity Reaction Status Date / Time codeine [CODEINE] AdvReac Unknown NAUSEA & Verified 09/10/21 13:52 VOMITING Review of Systems Review of Systems: Constitutional: Denies fever. Denies chills. No weakness. Positive fatigue. ENT/ Mouth: No Ear Pain, positive Nasal Congestion, no sore throat, No Rhinorrhea, No Swallowing Difficulty Skin: No rash or itching. Cardiovascular: No chest pain. No palpitations. Respiratory: Positive shortness of breath. Positive cough. Positive sputum production. Gastrointestinal: No nausea. No vomiting. No diarrhea. No abdominal pain. Genitourinary: No burning micturition. No urinary frequency. Neurologic: No headache. No dizziness. No syncope. No numbness or tingling in the extremities. Musculoskeletal: No muscle pain. No back pain. No joint pain or stiffness. Yes all other systems are reviewed and are negative PMFSH Past Medical History Attestation statement: The following information was validated with the patient. Source: old records reviewed Medical History Avascular necrosis of bone Surgical History History of left hip replacement (~10/01/19) Social History Social History Patient Tobacco Use Status: Current everyday Tobacco user Advance Directives: No Advance Directives Information Provided: Yes Current occupational status: disabled Current occupation: rt handed Physical Exam Vital Signs: Vital Signs: Last Vital Signs Temp 98.2 F 05/12/22 08:00 Pulse 78 05/12/22 08:00 Resp 20 05/12/22 08:00 BP 143/99 H 05/12/22 08:00 Pulse Ox 99 05/12/22 08:00 O2 Del Method 05/12/22 08:00 BMI result Body Mass Index 23.1 Appearance: Alert.?Oriented to person, place and time. No acute distress.?Normal affect. Eyes: Pupils equal, round and reactive to light.? ENT: TM normal bilaterally. Pharynx normal.?? Neck: Normal inspection.? Neck supple.??No cervical adenopathy CVS: Heart sounds normal. Normal heart rate and rhythm.? Pulses normal.?? Respiratory: No respiratory distress.? Lung sounds clear at the apices, mild expiratory wheezing at the bilateral bases. Abdomen: Soft and non-tender. Normoactive bowel sounds. Skin: Skin warm and dry.? Normal skin color.? ? Extremities: No lower extremity edema.? Neuro: Moves all extremities spontaneously. Sensation intact bilaterally. No motor deficits. Ambulates with normal steady gait. Course Reevaluation(s) Reevaluation #1: COVID-19 testing is negative, influenza B testing is positive. Symptoms greater than 72 hours, at this time would not be candidate for initiating influenza. However, this is likely causing a COPD exacerbation, for which will send prescription for doxycycline and prednisone to patient's pharmacy. Chest x-ray reveals no acute cardiopulmonary process, this time does not appear consistent with pneumonia. She remains stable speaking clear full sentences and ambulatory with a steady gait. We additionally discussed conservative treatment including rest, hydration, acetaminophen/ibuprofen as needed for fever/pain, saline nasal sprays and humidifiers as well. Advised to follow up with primary care provider within the next week for persistent symptoms. Discussed worrisome signs and symptoms that would warrant re-evaluation in the emergency department. All questions were answered. Medical Decision Making Medical Decision Making MDM Narrative: Patient is a 61-year-old female with past medical history of Hypertension, depression, anxiety, COPD, GERD presenting to emergency department for evaluation of cough. By her account, this feels consistent with prior COPD exacerbations. At the time of my examination she is overall well-appearing. No respiratory distress, no increased work of breathing, mild expiratory wheezing to the bilateral lung bases, she is afebrile without tachycardia tachypnea or hypoxia. She is able to speak clear full sentences. Overall she is nontoxic in appearance. Will obtain testing for COVID-19/influenza, and chest x-ray to evaluate for in full trait/consolidation suggestive of pneumonia. At this time I have a low suspicion for additional etiologies such as ACS, the effusion, pneumothorax, CHF. PERC negative, not consistent with pulmonary embolism. Differential Diagnosis Differential Diagnoses: The differential diagnosis associated with the presentation includes (As noted above) Lab Data MDM Lab Attestation statement: I reviewed the patient's lab results. Labs: Lab Results 05/12/22 05/12/22 Range/Units 08:08 08:08 COVID-19 ([facility]) Negative (Negative) COVID-19 Clin Com See Note Influenza Type A ([facility]) Negative (Negative) Influenza Type B ([facility]) Positive A (Negative) Influenza A & B Note See Note Independent Interpretation I performed an independent interpretation of an: Plain X-Ray (I have personally interpreted chest x-ray and agree with radiologist impression.) Radiology Impression Discussion of test interpretation with radiology: I have reviewed the radiologist's reading. Radiologist Impression: XR/XR chest 1V IMPRESSION: Unremarkable examination. Prescription Management I considered prescription management with: Antibiotic Chronic Conditions Patient?s care impacted by: Hypertension and Other (COPD) Discharge Plan Discharge Clinical Impression: Influenza, COPD with acute exacerbation Patient Disposition: Home, Self-Care Instructions: Influenza (ED), COPD (Chronic Obstructive Pulmonary Disease) (ED) Additional Instructions: Today you tested positive for the flu. Your COVID-19 test was negative. Your chest x-ray does not show any evidence of pneumonia. It is likely that influenza, which is a viral infection, is causing an exacerbation of your COPD, which is making you experience these symptoms. A prescription for antibiotic and prednisone were sent to your pharmacy for the treatment of COPD exacerbation. Please contact your primary care provider to arrange for a follow-up visit within the next week for persistent symptoms. You may return back to the emergency department with any new or worsening symptoms or concerns. Prescriptions: New doxycycline hyclate 100 mg capsule 100 mg PO BID Qty: 14 0RF prednisone 20 mg tablet 40 mg PO DAILY Qty: 10 0RF No Action amoxicillin 500 mg tablet 2,000 mg PO ONCE 1 Days Qty: 4 3RF Rx Instructions: take 4 capsules 1 hr prior to dental procedure ibuprofen 600 mg tablet 600 mg PO Q8H PRN (Reason: pain) Qty: 20 0RF cyclobenzaprine 5 mg tablet 5 mg PO TID PRN (Reason: muscle spasm) Qty: 14 0RF acetaminophen [Tylenol Arthritis Pain] 650 mg tablet extended release 650 mg PO Q8H PRN (Reason: pain) Qty: 30 0RF lidocaine [Lidoderm] 5 % adhesive patch,medicated 1 patch topical DAILY Qty: 15 0RF Rx Instructions: leave on most painful area for up to 12 hrs cefuroxime axetil 500 mg tablet 500 mg PO Q12H 7 Days Qty: 14 0RF phenazopyridine [Pyridium] 200 mg tablet 200 mg PO TID PRN (Reason: Burning with urination) 3 Days Qty: 9 0RF metoprolol succinate 50 mg tablet extended release 24 hr 1 tab PO DAILY oxycodone-acetaminophen 5-325 mg tablet 1 - 2 tab PO Q6H PRN (Reason: Pain) amlodipine 10 mg tablet 1 tab PO DAILY pantoprazole 40 mg tablet,delayed release (DR/EC) 1 tab PO DAILY hydroxyzine HCl 25 mg tablet 1 - 2 tab PO BID PRN (Reason: anxiety) albuterol sulfate 90 mcg/actuation HFA aerosol inhaler 2 puff PO Q4-6H PRN (Reason: Wheezing) losartan 100 mg tablet 1 tab PO DAILY fluoxetine 20 mg capsule 3 cap PO QAM buspirone 15 mg tablet 1 tab PO BID naproxen 500 mg tablet 500 mg PO BID PRN (Reason: pain) Qty: 20 0RF tramadol 50 mg tablet 50 mg PO Q8H PRN (Reason: severe pain (scale score 7-10)) Qty: 7 0RF permethrin 5 % cream 1 appl topical Q14D Qty: 60 0RF Rx Instructions: apply second treatment 14 days after first treatment if live lice remain Referrals: Junaid Martinez MD [Primary Care Provider] - Interventions: ED Discharge Assessment Last Done: 05/12/22 09:29 Discharge Date/Time: 05/12/22 09:30
[2022-05-12 08:31] LABS: IDNOW Serial# 16C4AD1C; IDNOW Serial# BCCEAD1C; Influenza A Negative (Negative); Influenza B2 Positive (Negative)
[2022-05-12 08:32] LABS: COVID-19 Test Negative (Negative)
== END 2022-05-12 09:30 | disposition home or self-care (01) ==
PROVIDERS: Emergency Provider Student in an Organized Health Care Education/Training Program; PCP Internal Medicine
DX: J11.1 Influenza due to unidentified influenza virus with other respiratory manifestations (principal); J44.1 Chronic obstructive pulmonary disease with (acute) exacerbation; R05.9 Cough, unspecified; R07.89 Other chest pain; F17.210 Nicotine dependence, cigarettes, uncomplicated; Z20.822 Contact with and (suspected) exposure to COVID-19; Z20.828 Contact with and (suspected) exposure to other viral communicable diseases; Z71.6 Tobacco abuse counseling; Z79.899 Other long term (current) drug therapy
CPT/HCPCS: 71045; 87502; 87635; 99282; 99283

== ENCOUNTER 2024-01-21 07:28 | Emergency (ER) | payer OTHER, SELFPAY ==
--- NOTE | ~2024-01-21 | XR_ITS ---
EXAMINATION: XR CHEST CLINICAL INFORMATION: Shortness of breath. COMPARISON: May 12, 2022. TECHNIQUE: 2 views of the chest were obtained. FINDINGS: No significant abnormality is noted involving the heart, lungs, mediastinum, or soft tissues. Mild degenerative changes of the spine. XR/XR chest 2V IMPRESSION: Unremarkable chest PA and lateral. Electronically signed by: Alexey Bennett MD 01/21/2024 08:49 AM EDT
[2024-01-21 07:31] VITALS: BP 141/60; PULSE 77; RESP 22; TEMP 36.6; O2SAT 97; BMI 25.5
[2024-01-21 07:43] VITALS: PULSE 72; RESP 18; TEMP 36.8; O2SAT 97
--- NOTE | 2024-01-21 07:49 | ED.SOB ---
HPI - SOB/Dyspnea General Chief Complaint: Dyspnea Stated Complaint: diff breathing Time Seen by Provider: 01/21/24 07:46 Source: patient, RN notes reviewed and old records reviewed Limitations: no limitations History of Present Illness ED Provider: Tracy Saldaña PA-C HPI Narrative: 63 yo F with a PMH of HTN, COPD, anxiety presents to the ED c/o SOB, dry cough, & congestion since yesterday. Reports mild chest discomfort. Has been using inhaler, Mucinex and Tylenol without relief. Reports yellow sputum production this AM, denies blood in sputum. Endorses intermittent nausea, denies vomiting. Denies fever, chills, diarrhea, dizziness. Denies any recent travel or sick contacts. No further complaints at this time. Related Data Home Medications ?Medication ?Instructions ?Recorded ?Confirmed albuterol sulfate 90 mcg/actuation 2 puff PO Q4-6H PRN Wheezing 06/09/21 aerosol inhaler amlodipine 10 mg tablet 1 tab PO DAILY 06/09/21 buspirone 15 mg tablet 1 tab PO BID 06/09/21 fluoxetine 20 mg capsule 3 cap PO QAM 06/09/21 hydroxyzine HCl 25 mg tablet 1 - 2 tab PO BID PRN anxiety 06/09/21 losartan 100 mg tablet 1 tab PO DAILY 06/09/21 metoprolol succinate 50 mg 1 tab PO DAILY 06/09/21 tablet,extended release 24 hr oxycodone-acetaminophen 5 mg-325 1 - 2 tab PO Q6H PRN Pain 06/09/21 mg tablet pantoprazole 40 mg tablet,delayed 1 tab PO DAILY 06/09/21 release Previous Rx's ?Medication ?Instructions ?Recorded acetaminophen 650 mg 650 mg PO Q8H PRN pain #30 tabs 02/13/20 tablet,extended release (Tylenol Arthritis Pain) cyclobenzaprine 5 mg tablet 5 mg PO TID PRN muscle spasm #14 02/13/20 tabs ibuprofen 600 mg tablet 600 mg PO Q8H PRN pain #20 tabs 02/13/20 lidocaine 5 % topical patch 1 patch topical DAILY #15 ea 02/13/20 (Lidoderm) permethrin 5 % topical cream 1 appl topical Q14D 2 doses #60 03/11/20 grams cefuroxime axetil 500 mg tablet 500 mg PO Q12H 7 days #14 tabs 11/09/20 phenazopyridine 200 mg tablet 200 mg PO TID PRN Burning with 11/09/20 (Pyridium) urination 3 days #9 tabs naproxen 500 mg tablet 500 mg PO BID PRN pain #20 tabs 06/09/21 tramadol 50 mg tablet 50 mg PO Q8H PRN severe pain 06/09/21 (scale score 7-10) #7 tabs amoxicillin 500 mg tablet 2,000 mg (4 x 500 mg) PO ONCE 1 09/23/21 day #4 tabs doxycycline hyclate 100 mg capsule 100 mg PO BID #14 caps 05/12/22 prednisone 20 mg tablet 40 mg (2 x 20 mg) PO DAILY #10 tabs 05/12/22 albuterol sulfate 2.5 mg/0.5 mL 5 mg inhalation Q4H PRN shortness 01/21/24 solution for nebulization of breath or wheezing #30 ea benzonatate 100 mg capsule 100 mg PO TID PRN cough #14 caps 01/21/24 prednisone 20 mg tablet 40 mg (2 x 20 mg) PO DAILY 5 days 01/21/24 #10 tabs Allergies Allergy/AdvReac Type Severity Reaction Status Date / Time codeine [CODEINE] AdvReac Unknown NAUSEA & Verified 01/21/24 07:33 VOMITING Review of Systems Review of Systems: Yes all other systems are reviewed and are negative Constitutional: Constitutional: Reports as per [facility] Past Medical History Attestation statement: The following information was validated with the patient. Source: old records reviewed Medical History Avascular necrosis of bone Surgical History History of left hip replacement (~10/01/19) Social History Social History Patient Tobacco Use Status: Current everyday Tobacco user Smoked in Last 30 Days: No Use of substances other than those prescribed or required for medical reasons: No Advance Directives: No Advance Directives Information Provided: Yes Do you have a plan to hurt others: No Plan Patient : No Current occupational status: disabled Current occupation: rt handed Physical Exam Vital Signs: Vital Signs: Last Vital Signs Temp 98.7 F 01/21/24 10:46 Pulse 70 01/21/24 10:46 Resp 16 01/21/24 10:46 BP 144/61 H 01/21/24 10:46 Pulse Ox 99 01/21/24 10:46 O2 Del Method Room Air 01/21/24 10:46 BMI result Body Mass Index 25.5 Const: General: cooperative, healthy appearing and no acute distress Orientation/consciousness: patient oriented x3 Limitations: no limitations HEENT: Head: Yes normal to inspection and Yes atraumatic Ears: hearing grossly normal bilaterally General nose exam: Normal external nose present Face and sinus: Yes normal facial exam Eyes: General: appearance normal, both eyes and all related structures EOM: EOMs intact bilaterally Neck: Neck: Yes normal visual inspection and Yes no meningeal signs Resp: Effort & Inspection: normal respiratory effort, Actively coughing (Wheeze appreciated with coughing) Quality: actively coughing and no respiratory distress Auscultation: clear to auscultation bilaterally and no crackles Cardio: Rate: regular rate Heart sounds: S1 normal heart sound present and S2 normal heart sound present GI: Inspection: Yes normal to inspection Palpation (GI): Soft to palpation, nontender, no guarding and not rigid Skin: Rashes: no rashes Wounds: no wounds Neuro: General: patient oriented x3, tone normal and no meningeal signs Cranial nerves: Yes CN's II-XII intact bilaterally Gait exam (Neuro): Normal gait present Extrem: General: Yes normal to inspection and Yes no pedal edema Course Course Course Narrative: -labs reassuring. Troponin negative. Viral studies negative. Rapid strep negative XR chest 2V IMPRESSION: Unremarkable chest PA and lateral > on re-evaluation patient's lungs CTA. Reports mild symptomatic improvement. Will discharge home with nebulizer liquid, p.o. prednisone, & recommended close follow-up with PCP. Results discussed with patient including worrisome signs and symptoms and strict return precautions, and when to return to the emergency department. They verbalized understanding and feel safe for discharge at this time. Medications Administered Discontinued Medications Generic Name Dose Route Start Last Admin Trade Name Freq PRN Reason Stop Dose Admin Albuterol/Ipratropium 3 ml 01/21/24 08:47 01/21/24 08:59 Albuterol/Iprat 2.5/0.5mg 3 Ml Ampul.Neb INHALE 01/21/24 08:48 3 ml ONCE ONE Administration Medical Decision Making Medical Decision Making [facility] Narrative: 63 yo F with a PMH of HTN, COPD, anxiety presents to the ED c/o SOB, dry cough, & congestion since yesterday. On exam, patient is lying in bed, in NAD, active coughing appreciated with wheeze during cough, otherwise lungs clear. Patient was nontoxic appearing, neurovascularly intact. Vital signs are stable with a BP of 141/60, an HR of 90, afebrile at 98.2 F, and saturating well on room air at 97%. Concern for COPD exacerbation vs viral illness vs pneumonia. Lower suspicion for ACS/DVT/PE at this time. Unlikely sepsis. Low suspicion for dissection Plan: EKG, CXR, labs, viral swabs including COVID-19, flu, RSV, bronchodilator protocol, re-evaluation. Please refer to course for remaining clinical decision making, interpretation of labs/imaging results, and discussions with consultants and/or family members. Differential Diagnosis Differential Diagnoses: The differential diagnosis associated with the presentation includes As above Admission/Observation Consideration of admission/observation: Escalation of care including admission/observation considered Lab Data [facility] Lab Attestation statement: I reviewed the patient's lab results. 01/21/24 07:45 01/21/24 07:45 Labs: Lab Results 01/21/24 01/21/24 Range/Units 07:45 08:11 WBC 10.5 (4.8-10.8) X10*3/uL RBC 4.06 L (4.20-5.50) X10*6/uL Hgb 11.0 L (12.0-16.0) g/dl Hct 33.8 L (37.0-47.0) % MCV 83.3 (80.0-98.0) fL MCH 27.1 (27.0-33.0) pg MCHC 32.5 (31.0-35.0) g/dl RDW 13.9 (11.0-16.0) % Plt Count 205 (160-400) X10*3/uL MPV 9.3 L (9.4-12.3) fL Immature Gran % (Auto) 0.6 H (0.0-0.4) % Neut % (Auto) 63.6 (45-73) % Lymph % (Auto) 21.9 (20-40) % [place]house % (Auto) 8.0 (2-11) % Eos % (Auto) 5.6 H (0-4) % Baso % (Auto) 0.3 (0-2) % Lymph # (Auto) 2.3 (1.2-4.9) X10*3/uL [place] # (Auto) 0.8 (0.1-1.2) X10*3/uL Eos # (Auto) 0.6 H (0.0-0.4) X10*3/uL Baso # (Auto) 0.0 (0.0-0.2) X10*3/uL Abs Immat Gran (auto) 0.06 H (0.00-0.03) X10*3/uL Absolute Neuts (auto) 6.7 (2.0-8.3) x10*3/uL Absolute Nucleated RBC 0.000 (0.0-0.012) X10*3/uL Nucleated RBC % (auto) 0.0 (0.0-0.2) /100WBC Sodium 139 (135-145) mmol/L Potassium 4.3 (3.3-5.1) mmol/L Chloride 108 (96-108) mmol/L Carbon Dioxide 20 L (22-29) mmol/L Anion Gap 15 (12-20) BUN 12 (9-16) mg/dL Creatinine 0.70 (0.5-1.4) mg/dL Estim Creat Clear Calc 79.6 Estimated GFR > 60 Random Glucose 107 (60-115) mg/dL Calcium 9.0 (8.4-10.2) mg/dL Magnesium 1.8 (1.6-2.6) mg/dL Total Bilirubin 0.4 (0.0-1.0) mg/dL AST 24 (5-31) U/L ALT 20 (0-31) U/L Alkaline Phosphatase 81 (39-117) U/L Troponin I High Sens < 2.7 (<3.5-17.0) ng/L B-Natriuretic Peptide 92 (<100) pg/mL Total Protein 6.7 (6.5-8.0) g/dL Albumin 3.8 (3.5-5.0) g/dL Influenza Type A (PCR) NEGATIVE (Negative) Influenza Type B (PCR) NEGATIVE (Negative) RSV RNA Qual (PCR) NEGATIVE (Negative) SARS-CoV-2 RNA (RT-PCR) NEGATIVE (Negative) S. pyogenes GrpA FRANCISCA Negative (Negative) Independent Interpretation I performed an independent interpretation of an: EKG (My interpretation EKG normal sinus rhythm rate of 71. QTC 460. T-wave inversion no longer evident in anterior leads when compared to prior. No STEMI) and Plain X-Ray Radiology Impression Discussion of test interpretation with radiology: I have reviewed the radiologist's reading. External Record Review External record reviewed: Inpatient record, Office record, Outpatient record, Prior outpatient labs, Prior outpatient radiology, Primary care record and Outside ED record Tests considered The following testing was considered but not selected: As above Chronic Conditions Patient?s care impacted by: Other (COPD) Critical Care Time Critical Care Time Critical Care Time: Yes Total Critical Care Time: 35 Attestation: I have personally provided critical care time exclusive of time spent on separately billable procedures. Time includes review of lab data, radiology results, discussion with consultants, and monitoring for potential decompensation. Intervention performed as documented. Discharge Plan Discharge Clinical Impression: Acute exacerbation of chronic obstructive airways disease Patient Disposition: Home, Self-Care Instructions: COPD (Chronic Obstructive Pulmonary Disease) (DC) Additional Instructions: Your x-ray was unremarkable Your blood work was reassuring You tested negative for COVID, flu, RSV Continue to use your inhalers and nebulizer machine at home In addition start taking prednisone Tessalon Perles for cough, take as needed If her symptoms persist or worsen, you constant worsening chest pain, shortness of breath or fever return to the ED Prescriptions: New benzonatate 100 mg capsule 100 mg PO TID PRN (Reason: cough) Qty: 14 0RF albuterol sulfate 2.5 mg/0.5 mL solution for nebulization 5 mg inhalation Q4H PRN (Reason: shortness of breath or wheezing) Qty: 30 0RF prednisone 20 mg tablet 40 mg PO DAILY 5 Days Qty: 10 0RF No Action amoxicillin 500 mg tablet 2,000 mg PO ONCE 1 Days Qty: 4 3RF Rx Instructions: take 4 capsules 1 hr prior to dental procedure ibuprofen 600 mg tablet 600 mg PO Q8H PRN (Reason: pain) Qty: 20 0RF cyclobenzaprine 5 mg tablet 5 mg PO TID PRN (Reason: muscle spasm) Qty: 14 0RF acetaminophen [Tylenol Arthritis Pain] 650 mg tablet extended release 650 mg PO Q8H PRN (Reason: pain) Qty: 30 0RF lidocaine [Lidoderm] 5 % adhesive patch,medicated 1 patch topical DAILY Qty: 15 0RF Rx Instructions: leave on most painful area for up to 12 hrs cefuroxime axetil 500 mg tablet 500 mg PO Q12H 7 Days Qty: 14 0RF phenazopyridine [Pyridium] 200 mg tablet 200 mg PO TID PRN (Reason: Burning with urination) 3 Days Qty: 9 0RF metoprolol succinate 50 mg tablet extended release 24 hr 1 tab PO DAILY oxycodone-acetaminophen 5-325 mg tablet 1 - 2 tab PO Q6H PRN (Reason: Pain) amlodipine 10 mg tablet 1 tab PO DAILY pantoprazole 40 mg tablet,delayed release (DR/EC) 1 tab PO DAILY hydroxyzine HCl 25 mg tablet 1 - 2 tab PO BID PRN (Reason: anxiety) albuterol sulfate 90 mcg/actuation HFA aerosol inhaler 2 puff PO Q4-6H PRN (Reason: Wheezing) losartan 100 mg tablet 1 tab PO DAILY fluoxetine 20 mg capsule 3 cap PO QAM buspirone 15 mg tablet 1 tab PO BID naproxen 500 mg tablet 500 mg PO BID PRN (Reason: pain) Qty: 20 0RF tramadol 50 mg tablet 50 mg PO Q8H PRN (Reason: severe pain (scale score 7-10)) Qty: 7 0RF doxycycline hyclate 100 mg capsule 100 mg PO BID Qty: 14 0RF prednisone 20 mg tablet 40 mg PO DAILY Qty: 10 0RF permethrin 5 % cream 1 appl topical Q14D Qty: 60 0RF Rx Instructions: apply second treatment 14 days after first treatment if live lice remain Referrals: Junaid Martinez MD [Primary Care Provider] - 5 days Interventions: ED Discharge Assessment Last Done: 01/21/24 10:46 Discharge Date/Time: 01/21/24 10:52 Print Language: Hebrew
--- NOTE | 2024-01-21 08:00 | ECG_ITS ---
Test Reason : SOB Blood Pressure : / mmHG Vent. Rate : 071 BPM Atrial Rate : 071 BPM P-R Int : 198 ms QRS Dur : 074 ms QT Int : 424 ms P-R-T Axes : 080 049 046 degrees QTc Int : 460 ms Normal sinus rhythm Normal ECG When compared with ECG of 09-OCT-2019 09:44, T wave inversion no longer evident in Anterior leads Referred By: Tracy Saldaña Electronically Signed By:DANISHA ADORNO MD
--- NOTE | 2024-01-21 08:06 | PC.NURSE ---
patient presents ambulatory with steady gait through external triage with cc of shortness of breath and a productive cough for the last few days, patient denies sick contacts or fevers, states she took mucinex last night and it helped but when she woke up this morning she felt as if the cough was back so she came in. patinet endorses prouctive cough with yellow sputum, LSCTA, no wheezes appreciated, patient states the cough feels like it is in her chest. oxygenating well on room air, VSS at this time, patient afebrile, states she has a hx of COPD and asthma, has been using inhalers at home with some relief. patient changed into appropriate hospital attire, awaiting MD rosario, 18g IV placed in R. forearm. all safety maintained at this time
[2024-01-21 08:07] LABS: MANUAL DIFF FLAG NO
[2024-01-21 08:16] LABS: Basophils Percent Auto 0.3 % (0-2); Eosinophils Absolute Auto 0.6 X10*3/uL (0.0-0.4); Eosinophils Percent Auto 5.6 % (0-4); Hematocrit 33.8 % (37.0-47.0); Imm Gran Abs Auto 0.06 X10*3/uL (0.00-0.03); Imm Gran Pct Auto 0.6 % (0.0-0.4); Lymphocytes Absolute Auto 2.3 X10*3/uL (1.2-4.9); Lymphocytes Percent Auto 21.9 % (20-40); Mean Corpuscular HGB Conc 32.5 g/dl (31.0-35.0); Mean Corpuscular Hemoglobin 27.1 pg (27.0-33.0); Mean Corpuscular Volume 83.3 fL (80.0-98.0); Mean Platelet Volume 9.3 fL (9.4-12.3); Monocytes Absolute Auto 0.8 X10*3/uL (0.1-1.2); Neutrophils Absolute Auto 6.7 x10*3/uL (2.0-8.3); Neutrophils Percent Auto 63.6 % (45-73); Platelet Count 205 X10*3/uL (160-400); Red Blood Count 4.06 X10*6/uL (4.20-5.50); Red Cell Distribution Width 13.9 % (11.0-16.0); White Blood Count 10.5 X10*3/uL (4.8-10.8)
[2024-01-21 08:28] LABS: Alanine Aminotransferase 20 U/L (0-31); Albumin Level 3.8 g/dL (3.5-5.0); Alkaline Phosphatase 81 U/L (39-117); Anion Gap 15 (12-20); Aspartate Amino Transferase 24 U/L (5-31); Bilirubin Total 0.4 mg/dL (0.0-1.0); Blood Urea Nitrogen 12 mg/dL (9-16); Carbon Dioxide 20 mmol/L (22-29); Chloride 108 mmol/L (96-108); Creatinine Clr Calc Pharmacy 79.6; Estimated Glomerular Filt Rate > 60; Glucose Random 107 mg/dL (60-115); Magnesium 1.8 mg/dL (1.6-2.6); Potassium 4.3 mmol/L (3.3-5.1); Sodium 139 mmol/L (135-145); Total Protein 6.7 g/dL (6.5-8.0)
[2024-01-21 08:42] LABS: IDNOW Serial# 08D9AD1C; Strep A Nucleic Acid Negative (Negative)
[2024-01-21 08:50] LABS: Influenza A PCR NEGATIVE (Negative); Influenza B PCR NEGATIVE (Negative); Resp Syncy Virus RNA Qual PCR NEGATIVE (Negative); SARS COV2 PCR INHOUSE NEGATIVE (Negative)
[2024-01-21 08:51] LABS: B Type Natriuretic Peptide 92 pg/mL (<100)
[2024-01-21 08:59] VITALS: PULSE 90; RESP 20; O2SAT 94
[2024-01-21] MEDS: Albuterol/Iprat 2.5/0.5MG 3 ML AMPUL.NEB INHALE (08:59)
[2024-01-21 09:04] LABS: Troponin-I High Sensitivity < 2.7 ng/L (<3.5-17.0)
[2024-01-21 10:46] VITALS: BP 144/61; PULSE 70; RESP 16; TEMP 37.1; O2SAT 99
== END 2024-01-21 10:52 | disposition home or self-care (01) ==
PROVIDERS: Physician Assistant; Emergency Provider Emergency Medicine; PCP Internal Medicine
DX: J44.1 Chronic obstructive pulmonary disease with (acute) exacerbation (principal); R05.9 Cough, unspecified; Z03.818 Encounter for observation for suspected exposure to other biological agents ruled out
CPT/HCPCS: 0241U; 71046; 80053; 83735; 83880; 84484; 85025; 87651; 93005; 94640; 99284; 99285

== ENCOUNTER → 2024-01-21 08:00 | Outpatient (BNV) | payer OTHER, SELFPAY | PROVIDERS: Emergency Provider Emergency Medicine; PCP Internal Medicine; Visit Provider Internal Medicine Cardiovascular Disease | DX: R06.02 Shortness of breath (principal) | CPT/HCPCS: 93010 ==